=== PATIENT | female | born 2000 | race Caucasian/White ===

== ENCOUNTER 2022-02-15 14:39 | Emergency (ER) | payer BC ==
[~2022-02-15] VITALS: Ht 160 cm; Wt 67.3 kg
[~2022-02-15 14:39] MED LIST: ADVIL200 MG PO; ALKA-SELTZE2 PO; AMOXIL400 MG/5 M PO; BENADRYL 25MG C25 MG PO; BENADRYL 50MG C50 MG PO; BENADRYL ITC EX; CIMETIDINE400 M1 PO; PAMPRIN PO; PREDNISONE10 MG PO; [UNRECOGNIZED DRUG - OTHER]
[2022-02-15 16:18] LABS: URINE BILIRUBIN - DIPSTICK NEGATIVE (NEGATIVE); URINE BLOOD DIPSTICK TRACE-INTACT (NEGATIVE); URINE COLOR YELLOW; URINE GLUCOSE - DIPSTICK NEGATIVE (NEGATIVE); URINE KETONE NEGATIVE (NEGATIVE); URINE LEUK ESTERASE NEGATIVE (NEGATIVE); URINE PH 6.5 (4.5-8.0); URINE PROTEIN - DIPSTICK NEGATIVE (NEG-TRACE); URINE UROBILINOGEN - DIPSTICK 0.2 E.U./dL (0.2)
[2022-02-15 16:22] LABS: HEMOGLOBIN 13.4 g/dl (12.0-16.0); IMMATURE GRANULOCYTES 0.1 % (0.0-5.0); MEAN CORPUSCULAR HGB 30.2 pG CALC (26.0-32.0); MEAN CORPUSCULAR HGB CONC 33.5 g/dL CAL (32.0-36.0); NEUT# 8.3 thou/uL (2.00-7.15); RED BLOOD COUNT 4.43 mill/uL (4.20-5.60); RED CELL DISTRI WIDTH 11.6 % (11.5-15.5)
[2022-02-15 16:23] LABS: MEAN CELL VOLUME 90.3 fL CALC (80.0-100.0)
[2022-02-15 16:27] LABS: URINE NITRITE - DIPSTICK NEGATIVE (Negative)
[2022-02-15 16:36] LABS: ALBUMIN 4.4 g/dL (3.2-5.0); ALKALINE PHOSPHATASE 70 u/l (38-126); ANION GAP 9 (6-22 (CALC)); BILIRUBIN, TOTAL 0.4 mg/dL (0.0-1.4); BUN 9 mg/dL (7-17); BUN/CREATININE RATIO 17 (12-20 (CALC)); CARBON DIOXIDE 27 mmol/l (22-30); CHLORIDE 105 mmol/l (95-108); CREATININE 0.6 mg/dL (0.5-1.0); GFR > 60 ML/MIN (>=60 (CALC)); GFR FOR AFR.AMER. > 60 ML/MIN (>=60 (CALC)); SGOT/AST 21 u/l (14-36); SODIUM 137 mmol/l (137-146); TOTAL PROTEIN 7.7 g/dL (6.3-8.2)
[2022-02-15 16:41] LABS: POTASSIUM 3.6 mmol/l (3.5-5.1)
[2022-02-15 17:00] VITALS: BP 128/81
[2022-02-15 17:30] VITALS: BP 125/73
[2022-02-15 17:48] LABS: LIPASE 106 u/l (23-300)
[2022-02-15] MEDS ORDERED: ONDANSETRON4 MG PO (17:56)
[2022-02-15] MEDS ORDERED: NAPROXEN500 MG PO (17:56)
[2022-02-15 18:00] VITALS: BP 129/78
[2022-02-15 18:30] VITALS: BP 131/86
== END 2022-02-15 18:35 | disposition home or self-care (01) | DRG 392 ==
LOC: ED 14:39
PROVIDERS: Nurse Practitioner
DX: R10.31 Right lower quadrant pain (principal); N83.202 Unspecified ovarian cyst, left side
CPT/HCPCS: Q9967